=== PATIENT | male | born 1940 ===

== ENCOUNTER 2023-04-08 10:40 | Outpatient (CLI) | payer MEDICARE ==
--- NOTE | 2023-04-08 11:52 | Sleep Patient Instructions ---
Sleep Center Visit Summary - Patient Visit Information Reason for Visit: Initial consultation, establish care - Patient Instructions Additional Instructions: You will continue with CPAP therapy with pressure set at 8-18 cmH2O. A supply prescription will be updated with your DME. You will be completing a titration sleep study in our sleep lab where you will be sleeping with the CPAP machine on and we will be adjusting your pressures to find your optimal pressure settings. Once we have your results back, we will call you and schedule a follow up to go over the results. You will be called by our office staff to schedule your follow up, but you may contact us with any questions or issue as needed. - Clinic Information Contact: [facility] [address] [place] [address] [email or web address] T: [phone]
--- NOTE | 2023-04-08 11:57 | SLEEP CARE CONSULTATION ---
Information from patient questionnaire entered by Ana Luisa Vallejo. I have reviewed and concur with the information entered by Ana Luisa Vallejo. This document represents the service I personally performed and the decisions made by me, Jacquelyn Sahu ARNP. History of Present Illness Service Date and Time: 04/08/2023 1040 Reason for Visit: New patient, Previously diagnosed sleep apnea, sleep apnea on CPAP therapy Chief Complaint: reports: Other (update supplies) Date of Onset: 10YRS Usual bedtime: 10PM Time it takes to fall asleep: 10MIN Snores at night: Yes Observed to quit breathing while asleep: Yes Number of times waking at night: 6 Reasons for waking at night: reports: Snoring, Bathroom Toss, Turn, or Twitch while sleeping: Yes Recalls having dreams: Yes Usually gets out of bed at: 7AM Morning headache: No Sleepy or fatigued during the day: Yes Ever fallen asleep while driving: Yes Takes day naps: Yes Dreams during day naps: No Prior sleep studies: Yes Additional HPI information: MIKE PEARSON was previously diagnosed to have severe, AHI 38.9, obstructive sleep apnea-hypopnea syndrome as seen in sleep study dated 08/14/2019 through [facility] and comes in today to establish care for CPAP therapy. - Parasomnia Symptoms Ever been unable to move upon waking from sleep: No Walks in sleep: No Talks in sleep: No Ever acted out dreams in sleep: No Ever felt weak in the knees when startled or emotional: No Bothered by creepy, crawly, restless sensations in legs: Yes Problems with memory or concentration: Yes CPAP Compliance Data - Data Reviewed with Patient Average duration of nightly device use: 8 hours 6 minutes Compliance rate %: 97.8 (90/90 days used) Current pressure setting (cmH2O): 8-18 (mean 9.8, avg 12.8, max 14.6) Average residual AHI: 8.7 (RERA 5.2) Central apnea: 1.5 Obstructive apnea: 4.2 Hypopnea: 3 Average large leak: 25 secs Compliance data discussion: He has a Dreamstation CPAP that is a re-certified machine. He is using [employer] for his supplies and needs his prescription updated. He is using a full face mask, ResMed AirFit F20 but has used and liked the AirTouch mask better, large cushion. Subjective Patient concerns: reports: mask leak noise (will sometimes wake him up), dry mouth, nose, throat (occasionally). denies: aerophagia, mask discomfort, air blowing in eyes, condensation in mask/hose, nasal congestion, epistaxis Observed to snore while using device: No Current pressure setting perceived as: comfortable On therapy, patient: reports: sleeping better, awakening more refreshed, being more awake and alert during the day, more rested overall. denies: drowsiness while driving Initial [place] Sleepiness Scale score: 18 (03/14/23) Past Medical History Past Medical History: reports: Hypertension, Gout Social History The patient's occupation is a RE. Patient is and lives in [place]. Have you smoked in the past 12 months: No Cigarettes per day (20/pack): 20 Years of smokin Quit date: 1967 Smoking Pack Years: 10.0 Alcohol use: Yes Alcohol amount and frequency: 2 GLASSES WINE EVERYDAY Caffeine use: Yes Caffeine amount and frequency: 2 CUPS EVERYDAY Family History Family history of sleep disordered breathing: Yes Family Hx Sleep Apnea: Father: Snoring Allergies and Home Medications Known drug allergies: Yes ( LISTED ) Drug allergies reviewed: Yes Home medication list reviewed: Yes (as listed) Allergy and home medication list: Allergies Sulfa (Sulfonamide Antibiotics) Allergy (Verified 04/06/23 12:04) Home Medications Medication Instructions Recorded Confirmed Last Taken Type Cholecalciferol (Vitamin D3) See Rx Instructions .ROUTE .COMPLEX 04/08/23 04/08/23 Unknown History [Vitamin D3] Electrolytes/Dextrose [Eql See Rx Instructions .ROUTE .COMPLEX 04/08/23 04/08/23 Unknown History Pediatric Electrolyte Soln] Heather See Rx Instructions .ROUTE .COMPLEX 04/08/23 04/08/23 Unknown History Fluticasone [Flonase] See Rx Instructions .ROUTE .COMPLEX 04/08/23 04/08/23 Unknown History Garlic Extract [Garlix] See Rx Instructions .ROUTE .COMPLEX 04/08/23 04/08/23 Unknown History Indomethacin [Indocin] See Rx Instructions .ROUTE .COMPLEX 04/08/23 04/08/23 Unknown History Lactobacillus Combination No.4 See Rx Instructions .ROUTE .COMPLEX 04/08/23 04/08/23 Unknown History [Probiotic] Mesalamine [Lialda] See Rx Instructions .ROUTE .COMPLEX 04/08/23 04/08/23 Unknown History Multivitamin See Rx Instructions .ROUTE .COMPLEX 04/08/23 04/08/23 Unknown History [place] 3,6/Dha/Ashley/Schizo/Mort See Rx Instructions .ROUTE .[facility] 04/08/23 04/08/23 Unknown History [Enfamil Dha-Ashley 110 mg/ml Drop] Potassium Citrate [Potassium] See Rx Instructions .ROUTE .COMPLEX 04/08/23 04/08/23 Unknown History Red Yeast Rice See Rx Instructions .ROUTE .COMPLEX 04/08/23 04/08/23 Unknown History Ubidecarenone [Co Q-10] See Rx Instructions .ROUTE .COMPLEX 04/08/23 04/08/23 Unknown History carvediloL [Coreg] See Rx Instructions .ROUTE .COMPLEX 04/08/23 04/08/23 Unknown History dilTIAZem HCL [Diltiazem 24Hr ER] See Rx Instructions .ROUTE .COMPLEX 04/08/23 04/08/23 Unknown History glucosamine HCL [Glucosamine HCl] See Rx Instructions .ROUTE .COMPLEX 04/08/23 04/08/23 Unknown History Review of Systems Cardiovascular: reports: high blood pressure, irregular heart rate or pulse, leg or foot swelling Gastrointestinal: reports: difficulty swallowing Neurological: reports: gait or balance problems. denies: headaches Psychiatric: denies: anxiety, depression Ear/Nose/Throat: reports: tonsillectomy Endocrine: denies: thyroid disease Physical Exam Vital signs obtained and entered by: ANA LUISA Herrera MA Blood Pressure: 139/75 (LEFT ARM) Cuff size: regular Heart Rate: 78 O2 Saturation: 97 Height: 6 ft 1 in Weight: 215 lb 12.8 oz Body Mass Index: 28.4 BMI Classification: Overweight Neck circumference: 18 Heart: irregular rhythm Lungs: clear bilaterally Impression and Plan 1. Obstructive Sleep Apnea-Hypopnea Syndrome, severe, with good treatment compliance and fair apnea control with mildly elevated residual AHI. On CPAP therapy, the patient has better sleep quality and is more rested overall. Patient has significant improvement of his sleep apnea although current pressure settings are mildly ineffective. His residual AHI is elevated. Patient's pressure setting is not optimal to control sleep apnea. I advised patient that a titration study will be next step to determine a more optimal pressure setting. He voiced understanding and agreement. I will update his supply prescription so that he can obtain supplies. We will follow-up with him after the titration study to adjust pressures and make any changes that are needed. He voiced agreement with plan of care. Patient's apnea severity and rationale for treatment to reduce apnea, improve sleep quality and reduce cardiovascular and cerebrovascular events was reviewed. I also reviewed the benefit of consistent device use of CPAP for hypertension. 2. Overweight, unspecified. Currently patients BMI is 28.4. Obesity increases the risk of apnea, CPAP pressure requirements and overall health risks especially cardiovascular and diabetes. Thus patient is advised to lose weight. * Continue auto CPAP pressure at 8-18 cmH2O * Titration study * Update supply prescription * Notify me if snoring with mask or feeling that the pressure is too much or too little * Attempt to lose weight * Call this office if any problems using CPAP * Return for follow up after titration study, or sooner if concerns arise Counseling Topics: Spare mask, Weight loss health impact Prescriptions: Device supplies Follow up with Sleep Care in: other (after titration study) Plan: Titration study Visit Type: In Office Time Spent with Patient (minutes): 34 Provider Statement: I spent 100% of the Face to Face Visit with the patient with greater than 50% spent counseling the patient and coordination of care.
[2023-04-08 12:04] VITALS: BP 139/75; O2SAT 97
== END 2023-04-08 10:41 | disposition home or self-care (01) ==
LOC: SC 10:40
PROVIDERS: ATTEND Nurse Practitioner Family
DX: G47.33 Obstructive sleep apnea (adult) (pediatric) (principal); E66.3 Overweight; Z68.28 Body mass index [BMI] 28.0-28.9, adult
CPT/HCPCS: 99203; G0463; 99212

== ENCOUNTER 2023-04-25 20:06 | Outpatient (CLI) | payer MEDICARE | END 2023-04-25 20:07 | disposition home or self-care (01) | LOC: SC 20:06 | PROVIDERS: ATTEND Nurse Practitioner Family | DX: G47.30 Sleep apnea, unspecified (principal); I10 Essential (primary) hypertension; G47.61 Periodic limb movement disorder; I48.91 Unspecified atrial fibrillation | CPT/HCPCS: 95811 ==

== ENCOUNTER 2023-05-05 09:07 | Outpatient (CLI) | payer MEDICARE ==
--- NOTE | 2023-05-05 09:45 | Sleep Patient Instructions ---
Sleep Center Visit Summary - Patient Visit Information Reason for Visit: Titration follow-up - Patient Instructions Additional Instructions: You were here for follow up of titration study results. You will be continued on CPAP therapy with pressure at 10 cmH2O. Please let us know if the pressure change is uncomfortable and we can make further adjustments of the pressure. You should follow up with sleep care in 1-2 months. You may contact us sooner for any questions or concerns. - Clinic Information Contact: [facility] [address] [place] [id number] [email or web address] T: [phone]
--- NOTE | 2023-05-05 09:48 | SLEEP CARE CONSULTATION ---
Information from patient questionnaire entered by Ana Luisa Vallejo. I have reviewed and concur with the information entered by Ana Luisa Vallejo. This document represents the service I personally performed and the decisions made by , Jacquelyn Sahu ARNP. History of Present Illness Service Date and Time: 05/05/2023 09 Initial [place] Sleepiness Scale score: 18 (03/14/23) Current [place] Sleepiness Scale score: 15 Additional HPI information: SALEEM PEARSON returns for follow up of the sleep study with a manual CPAP titration study performed on 04/25/2023. The patient was informed of the following polysomnography findings: CPAP was initiated at 8 cmH2O and titrated up to CPAP at 10 cmH2O. CPAP at 10 cmH2O appeared to be optimal (AHI of 0 per hour on the pressure). There was REM sleep on the pressure. The patient did not sleep supine during this study. Oxygen saturation was normal throughout the night. Lower CPAP settings appeared adequate as well. The patient appeared to have tolerated positive airway pressure therapy fairly well. There was severe periodic leg movement of sleep contributing to the sleep fragmentation. Cardiac rhythm was atrial fibrillation with occasional premature ventricular contractions. Patient counseled not drink alcohol less than 4 hours before bedtime as it can increase snoring and apnea. Patient was cautioned about risks of drowsy driving until sleepiness symptoms resolve. Patient denies drowsy driving. Sleep Study - Results Type of Sleep Study: Polysomnography (TITRATION F/U 04/25/23) Prior sleep studies: Yes Polysomnography/Home Sleep Study results: IMPRESSION: The quality of the study is good. CPAP was initiated at 8 cmH2O and titrated up to CPAP at 10 cmH2O. CPAP at 10 cmH2O appeared to be optimal (AHI of 0 per hour on the pressure). There was REM sleep on the pressure. The patient did not sleep supine during this study. Oxygen saturation was normal throughout the night. Lower CPAP settings appeared adequate as well. The patient appeared to have tolerated positive airway pressure therapy fairly well. The patients sleep efficiency was reduced due to several prolonged awakenings during the night. The sleep architecture was abnormal for sleep fragmentation and reduced amount of time spent in REM and slow wave sleep (N3). There was severe periodic leg movement of sleep contributing to the sleep fragmentation. Cardiac rhythm was atrial fibrillation with occasional premature ventricular contractions. No abnormal behavior (parasomnia) observed during the night. Allergies and Home Medications Known drug allergies: Yes (sulfa) Drug allergies reviewed: Yes Home medication list reviewed: Yes (no changes) Allergy and home medication list: Allergies Sulfa (Sulfonamide Antibiotics) Allergy (Verified 05/03/23 13:16) Review of Systems Review of systems same as previous: Yes (no changes) Physical Exam Vital signs obtained and entered by: JACQUELYN STORM Blood Pressure: 151/89 Cuff size: regular (right arm) Heart Rate: 71 O2 Saturation: 97 Height: 6 ft 1 in Weight: 216 lb 12.8 oz Body Mass Index: 28.5 BMI Classification: Overweight Impression and Plan 1. Obstructive Sleep Apnea-Hypopnea Syndrome, severe. Saleem returns after a titration study to find optimal pressure to control his sleep apnea. He was adv ised that continuing positive pressure therapy could benefit hypertension. Patient was informed that his optimal pressure appeared to be at 10 cm H2O. On automatic CPAP setting of 5-10 cm H2O is also appropriate. The patient will be continued on nasal autoCPAP therapy with pressure set at 10 cmH2O. Compliance guidelines also reviewed. A copy of compliance guidelines will be given for reference at check out. 2. Atrial fibrillation. Cardiac monitoring showed atrial fibrillation with occasional PVCs during the night of the titration study. He says he has a history of an arrhythmia. Patient was advised to follow-up with his primary provider or financial auditor for further evaluation and treatment as needed. He voiced understanding. 3. Periodic limb movement, severe, that did contribute to the fragmentation of patients sleep. Periodic limb movement of sleep (PLMS) is characterized by episodes of repetitive limb movements that occur during sleep and usually involve the lower limbs. The etiology is unknown. Sleep hygiene methods can also improve sleep as well as lifestyle changes such as regular exercise. Patient was advised that no treatment is needed at this time. If symptoms increase, then further evaluation is indicated. 4. Overweight, unspecified. Currently patients BMI is 28.5. Obesity increases the risk of apnea, CPAP pressure requirements and overall health risks especially cardiovascular and diabetes. Thus patient is advised to lose weight. * Change auto CPAP pressure to 10 cmH2O * Follow up with primary for finding of atrial fibrillation during titration study * Notify me if snoring with mask or feeling that the pressure is too much or too little * Attempt to lose weight * Call this office if any problems using CPAP * Return for follow up in 1-2 months, or sooner if concerns arise Adjust device pressure to (cmH2O): 10 Counseling Topics: Weight loss health impact Follow up with Sleep Care in: 1-2 months Visit Type: In Office Time Spent with Patient (minutes): 20 Provider Statement: I spent 100% of the Face to Face Visit with the patient with greater than 50% spent counseling the patient and coordination of care.
[2023-05-05 09:53] VITALS: BP 151/89; O2SAT 97
== END 2023-05-05 09:08 | disposition home or self-care (01) ==
LOC: SC 09:07
PROVIDERS: ATTEND Nurse Practitioner Family
DX: G47.33 Obstructive sleep apnea (adult) (pediatric) (principal); I48.91 Unspecified atrial fibrillation; G47.61 Periodic limb movement disorder
CPT/HCPCS: 99213; G0463; 99212

== ENCOUNTER 2023-08-05 14:03 | Outpatient (CLI) | payer MEDICARE ==
--- NOTE | 2023-08-05 13:14 | SLEEP CARE CONSULTATION ---
Information from patient questionnaire entered by Fanny Vallejo. I have reviewed and concur with the information entered by Fanny Vallejo. This document represents the service I personally performed and the decisions made by me, Jacquelyn Sahu ARNP. History of Present Illness Service Date and Time: 08/05/2023 1300 Previous diagnosis: Severe, Obstructive Sleep Apnea-Hypopnea Syndrome AHI: 38.9 (on 08/14/2019) Reason for follow up: three month Equipment type: CPAP (Dreamstation, recertified) Mask style: Full face Mask brand: Resmed (AirTouch) Backup mask available: Yes Last cushion change: 2 weeks Prior sleep studies: Yes Type of Sleep Study: Polysomnography (08/14/2019) HPI additional information: MIKE PEARSON was diagnosed to have severe, AHI 38.9, obstructive sleep apnea- hypopnea syndrome and returns via video appointment today for CPAP therapy three month after pressure change follow-up. Sleep Study - Results Type of Sleep Study: Polysomnography Prior sleep studies: Yes CPAP Compliance Data - Data Reviewed with Patient Average duration of nightly device use: 7 hours 59 minutes Compliance rate %: 100 (05/05/23-08/02/23) Current pressure setting (cmH2O): 10 Average residual AHI: 6.0 (RERA 8.8) Central apnea: 0.9 Obstructive apnea: 3.7 Hypopnea: 1.4 Average large leak: 1 min 24 secs Subjective Patient concerns: denies: aerophagia, mask discomfort, air blowing in eyes, mask leak noise, condensation in mask/hose, nasal congestion, dry mouth, nose, throat, epistaxis Observed to snore while using device: No Current pressure setting perceived as: comfortable On therapy, patient: reports: sleeping better, awakening more refreshed, being more awake and alert during the day, more rested overall. denies: drowsiness while driving Initial [place] Sleepiness Scale score: 18 (03/14/23) Current [place] Sleepiness Scale score: 11 (08/05/23) Allergies and Home Medications Known drug allergies: Yes (as listed) Drug allergies reviewed: Yes Home medication list reviewed: Yes (no changes) Allergy and home medication list: Allergies Sulfa (Sulfonamide Antibiotics) Allergy (Verified 08/03/23 16:12) Review of Systems Review of systems same as previous: No (DIVERTICULITIS) Physical Exam Vital signs obtained and entered by: FANNY Herrera MA Height: 6 ft (PER PT) Weight: 208 lb (PER PT) Body Mass Index: 28.2 BMI Classification: Overweight Impression and Plan 1. Obstructive Sleep Apnea-Hypopnea Syndrome, severe, with good treatment compliance and fair apnea control with mild elevation of residual AHI. On CPAP therapy, the patient has better sleep quality and is more rested overall. He has significant improvement of his sleep apnea although his current pressure setting is slightly ineffective. He feels the pressure is comfortable and he is sleeping well. No further adjustments will be made at this time and we will follow up with him next year. Patient's apnea severity and rationale for treatment to reduce apnea, improve sleep quality and reduce cardiovascular and cerebrovascular events was reviewed. I also reviewed the benefit of consistent device use of CPAP for hypertension, arrhythmia. 2. Overweight, unspecified. Currently patients BMI is 28.2. Obesity increases the risk of apnea, CPAP pressure requirements and overall health risks especially cardiovascular and diabetes. Thus patient is advised to lose weight. * Continue CPAP pressure at 10 cmH2O * Notify me if snoring with mask or feeling that the pressure is too much or too little * Attempt to lose weight * Call this office if any problems using CPAP * Return for follow up in 12 months, or sooner if concerns arise Counseling Topics: Weight loss health impact Follow up with Sleep Care in: 1 year Visit Type: Telehealth Video Video Type: Doximity Patient Location: Home Location of Provider: Office Patient agrees and consents to this telehealth visit type: Yes Time Spent with Patient (minutes): 20 Provider Statement: I spent 100% of the Telehealth Video Call with the patient with greater than 50% spent counseling the patient and coordination of care.
== END 2023-08-05 14:04 | disposition home or self-care (01) ==
LOC: SC 14:03
PROVIDERS: ATTEND Nurse Practitioner Family
DX: G47.33 Obstructive sleep apnea (adult) (pediatric) (principal); E66.3 Overweight; Z68.28 Body mass index [BMI] 28.0-28.9, adult